=== PATIENT | female | born 1990 | race Caucasian/White ===

== ENCOUNTER → 2017-01-03 | Outpatient (CLI) | payer BC ==
[~2017-01-03] MED LIST: NAPR1TAB9 PO; ONDA4TAB7 SL
--- NOTE | 2017-01-03 09:47 | DIAGNOSTIC IMAGING REPORT ---
ULTRASOUND RIGHT UPPER QUADRANT ABDOMEN CLINICAL HISTORY: Right upper quadrant abdominal pain. COMPARISON STUDY: Abdominal CT dated 01/04/2014. TECHNIQUE: Real-time, grayscale, and color flow sonography of the right upper quadrant of the abdomen was performed. Images are reviewed in the transverse and longitudinal planes. FINDINGS: Liver: The liver is normal in size and echotexture. There is no intrahepatic biliary ductal dilatation. The main portal vein is patent. Gallbladder: The gallbladder is normal in appearance. No gallstones are identified. There is no gallbladder wall thickening or pericholecystic fluid. A sonographic Denise's sign is reportedly absent. The common bile duct measures up to 0.2 cm in diameter. Pancreas: Visualized portions of the pancreatic head and body are normal in appearance. Right kidney: Survey images of the right kidney demonstrate normal size and echotexture. There is no hydronephrosis. Ascites: None. IMPRESSION: Unremarkable sonographic assessment of the right upper quadrant. No gallstones are seen. Electronically signed by: Carlos De La Fuente M.D. 01/03/2017 9:45 AM Dictated Date/Time: 01/03/2017 9:44 AM
== END | disposition home or self-care (01) ==
LOC: C.ULTR 09:09
PROVIDERS: ATTEND Physician Assistant
DX: R10.811 Right upper quadrant abdominal tenderness (principal)

== ENCOUNTER 2022-02-13 07:28 | Inpatient (IN) ==
[2022-02-13] MEDS ORDERED: LACTATED RINGER'S 1,000 ML IV PRN (08:08)
--- NOTE | 2022-02-13 08:17 | History & Physical Report ---
Date of Service February 13, 2022 Assessment & Plan (1) SROM (spontaneous rupture of membranes): Plan: 31 y/o G1 at 39 3/7 wga presents w/ SROM VSS Fetus cat 1 SROM - will see what cervix does over next few hours, never been checked. Will discuss w/ oncoming provider regarding when augmentation would be offered GBS unknown, pt notes she would decline treatment for antibx as well. Discussed importance of treatment if indicated epidural prn History of Present Illness Chief Complaint: LOF Primary Care Provider: Shell Bennett MD 31 y/o G1 at 39 3/7 wga presents w/ LOF since 2AM. Cramping began after, +FM; denies VB. 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: G1 q28-29d denies hx abnl pap, 03/2020 neg cyto declines hx STIs Allergies Allergy/AdvReac Type Severity Reaction Status Date / Time dextromethorphan Allergy Mild HIVES Verified 02/05/22 16:16 doxylamine Allergy Mild HIVES Verified 02/05/22 16:16 pseudoephedrine Allergy Mild HIVES Verified 02/05/22 16:16 acetaminophen [From NyQuil] AdvReac Verified 02/05/22 16:16 Home Medications Medication Instructions Recorded Confirmed Type prenat.vits,yudelka,tjq-tsmo-mmudv PO 07/06/21 02/05/22 History Patient History Medical History (Updated 02/13/22 @ 08:16 by Natalie Lang MD) Acute gastroenteritis Acute pyelonephritis Surgical History History of ankle surgery S/P tonsillectomy Status post adenoidectomy Family History Grandmother (Maternal) Ovarian cancer Mother Ovarian cancer Grandfather (Paternal) Pancreas cancer Denies family history of Prostate cancer Myocardial infarction Breast cancer Colorectal cancer Social History (Updated 07/06/21 @ 11:00 by Maida Sherman, OMARI) Smoking Status: Never smoker Second Hand Exposure: No; Hx Alcohol Use: No Hx Substance Use: No Preferred Language: Arabic Communication Ability: Effective Visual Impairment: No Limitations Hearing Ability: Normal Manager Of Data Required: No Beliefs That Will Affect Care: None marital status: marital status details: Herb Mendez [phone] Current Living Situation: Spouse Current Living Situation Comment: lives with . 2 cats and 1 dog. 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 Feels Safe at Home: Yes Dental Care, Regularly: Yes Physical Activity Frequency: 1-2 Times per Week Seatbelt Use: always Sunscreen Use: Yes Physical Exam Genitourinary: OB Exam Abdomen: + vertex (confirmed by us) and + estimated weight (7) Manual OB Exam: + cervical dilation (3-4), + cervical effacement 70%, + station -2 and + amniotic fluid (+pooling, nitrazine, ferning) OB Exam Monitor Tracing: + external FHT monitor used, + external uterine monitor used (irreg ctx) and + category I (130/mod/+accel/-decel) Results & Data ([facility]) Vital Signs (Past 12 Hours) Vital Signs Pulse BP 02/13/22 07:43 72 136/80 Laboratory Results OB Labs: Blood Type A Positive 07/10/21 Antibody Screen NEGATIVE 07/10/21 Hemoglobin 11.2 g/dL (12.0-16.0) L 11/28/21 Hematocrit 32.8 % (37-47) L 11/28/21 Mean Corpuscular Volume 83.7 fL (80-100) 07/10/21 Platelet Count 283 K/uL (130-400) 07/10/21 Rubella IgG Antibody Immune (Immune) 07/10/21 Rapid Plasma Reagin Nonreactive (Nonreactive) 07/10/21 Hepatitis B Surface Antigen Neg (Neg) 07/10/21 HIV (1&2) Ab and P24 Ag, 4th Gener Neg (Neg) 07/10/21 Glucose 1 Hour 50 gm Load 105 mg/dl (70-130) 11/28/21 OB Optional Labs: Chlamydia trachomatis RNA NOT DETECTED (NOT DETECTED) 07/10/21 Neisseria gonorrhoeae RNA NOT DETECTED (NOT DETECTED) 07/10/21 Thyroid Stimulating Hormone (TSH) 1.180 uIu/ml (0.300-4.500) 11/20/19 Labs Reviewed: declines cf/sma--akh cfDNA low risk--smp declines msafp--smp GBS unk Coding Level of Care Code None Diagnoses SROM (spontaneous rupture of membranes)
[2022-02-13 08:37] LABS: Hemoglobin 11.2 g/dL (12.0-16.0); Mean Corpuscular Hemoglobin 29.6 pg (25-34); Mean Corpuscular Volume 84.4 fL (80-100); Mean Platelet Volume 10.3 fL (7.4-10.4); Platelet Count 245 K/uL (130-400); RDW Coefficient of Variation 14.4 % (11.5-14.5); RDW Standard Deviation 44.2 fL (36.4-46.3); Red Blood Count 3.79 M/uL (4.2-5.4); White Blood Count 9.68 K/uL (4.8-10.8)
--- NOTE | 2022-02-13 12:36 | Labor Progress Brief Note ---
Date of Service February 13, 2022 Subjective Late note due to patient care responsibilities: Patient was checked approx 8am, then rechecked 11am - no cervical change; 3-/-2. Contraction pattern is irregular, not labor pattern. I discussed with patient that since it has been >6h since SROM and since she has not made cervical change, would recommend augmentation with pitocin. She refuses, stating that she'd like to give her body more time. We discussed risks of stalling labor, including risk of infection/chorioamnionitis, , hemorrhage. She has discussed with other physicians her refusal for swab for GBS and refusal for antibiotic treatment for GBS unknown status - I also discussed risks of u nknown GBS status, and therefore non-treatment, including risk of early and late onset GBS sepsis of the . Discussed risk of and risk of severe morbidity to infant. She would like to take these risks and declines GBS prophylaxis treatment. Patient wanted to know if I would be comfortable letting her wait for labor for a bit longer - I told her that, no, my recommendation would be start augmentation now. She declined and stated that she would let us know when her body is ready. Assessment & Plan Admission and Anticipated Discharge Date Admission Date: February 13, 2022 Results & Data ([facility]) Vital Signs (Past 12 Hours) Vital Signs Temp Pulse Resp BP 02/13/22 10:05 36.7 C 18 02/13/22 07:46 36.7 C 72 18 136/80 02/13/22 07:43 36.7 C 72 136/80 Coding Level of Care Code None
[2022-02-13] MEDS ORDERED: OXYTOCIN 30 UNITS/500 ML BAG IV PRN ×2 (14:55→17:06)
--- NOTE | 2022-02-13 14:55 | Labor Progress Brief Note ---
Date of Service February 13, 2022 Subjective Feeling ctx a bit more. Ambulating in room. FHT has been cat 1 with previous strips, just placing pt on monitor now. Cervix 5/100/0 Recommend pit if ctx not Q 2-3 min. Not agreeable to starting pitocin, wants to see how her body does instead. Expresses that since she is trying to labor without epidural, pitocin will make ctx too painful. Assessment & Plan Admission and Anticipated Discharge Date Admission Date: February 13, 2022 Results & Data ([facility]) Vital Signs (Past 12 Hours) Vital Signs Temp Pulse Resp BP 02/13/22 12:56 68 131/77 02/13/22 12:54 37.0 C 20 02/13/22 10:05 36.7 C 18 02/13/22 07:46 36.7 C 72 18 136/80 02/13/22 07:43 36.7 C 72 136/80 Coding Level of Care Code None
[2022-02-13] MEDS: OXYTOCIN 30 UNITS/500 ML BAG IV PRN ×2 (15:49→16:35)
[2022-02-13] MEDS ORDERED: LIDOCAINE 1% LOCAL 20 ML VIAL ONE (15:50)
--- NOTE | 2022-02-13 16:16 | Delivery Summary ---
Vaginal Delivery Summary Date of Service February 13, 2022 Vaginal Delivery Summary and 1st Degree LAC Vaginal Delivery Summary: Pre-delivery diagnoses: 31yo @ 39 2/7, spontaneous labor, unknown GBS status Post-delivery diagnoses: same Procedure: spontaneous vaginal delivery Surgeon: Renée Roque DO Complications: none Findings: Viable male . Apgars: 8/9. Weight pending, please see nursery records. Estimated blood loss: 300ml Description of delivery: The patient progressed to complete without anesthesia. She then began to push. She spontaneously vaginally delivered a viable from the cephalic presentation. The head delivered in GOMEZ position. The anterior shoulder delivered, followed by the posterior shoulder, followed by the body. No nuchal. The baby was placed on mother's abdomen and a spontaneous cry was heard. Delayed cord clamping was employed, and the cord was doubly clamped and cut. Cord blood was obtained. The placenta was delivered spontaneously intact with a 3-vessel cord. The uterus and vagina were swept of clots and debris. IV pitocin was given. The uterus became firm. The cervix, vagina, and perineum were inspected and a deep right vaginal sulcal tear was noted, as well as a 1st degree perineal. The sulcal tear was infiltrated with 1% lidocaine, and repaired with 3-0 vicryl in a running locked stitch. The 1st degree tear was hemostatic, therefore the patient elected against repair. Excellent hem ostasis was observed. The mother and baby are recovering in stable and good condition in the room. Sponge, needle and instrument counts were correct x 2. During the repair of sulcal tear, I accidentally stuck myself with the needle - I promptly cut this off of suture, removed glove and washed with betadine. A new needle was used to continue the repair. At no time did the patient come in contact with my blood or the dirty needle. I debriefed patient, she is agreeable to infectious disease labs by [facility]. Renée Roque DO [facility] Vaginal Delivery Charge Vaginal Delivery Codes: 24671 global code for the antepartum, delivery, and post- Delivery Type Details: and 1st Degree LAC
[2022-02-13] MEDS ORDERED: bisacodyL 10 MG SUPP PR PRN (17:06)
[2022-02-13] MEDS ORDERED: DIPHTHERIA/TETANUS/PERTUSSIS 0.5 ML SYR/VIAL IM ONE (17:06)
[2022-02-13] MEDS ORDERED: BENZOCAINE 20% AER SPR 82.5 GM CAN EXT PRN (17:06)
[2022-02-13] MEDS ORDERED: HYDROCORTISONE ACETATE 25 MG SUPP PR PRN (17:06)
[2022-02-13] MEDS ORDERED: IBUPROFEN 600 MG TAB PO PRN (17:06)
[2022-02-13] MEDS: DOCUSATE SODIUM 100 MG CAP PO SCH (21:07)
--- NOTE | 2022-02-14 05:39 | Obstetrical Progress Note ---
Date of Service <Ashkan Huitron MD - Last Filed: 02/14/22 07:08> February 14, 2022 Assessment & Plan <Ashkan Huitron MD - Last Filed: 02/14/22 07:08> (1) Vaginal delivery: 31 yo now PPD1 from [facility] at 39wk3d, unmedicated , subsequent deep right sulcal tear repaired after delivery. -Continue routine care -Vitals reviewed- HDS, afebrile -GBS unknown- never tested, declined intrapartum antibiotics after lengthy risk/benefit discussion with OB -Pain control with ibuprofen, acetaminophen PRN -Hgb 10.1, asymptomatic <Renée Roque DO - Last Filed: 02/14/22 08:11> (1) Vaginal delivery: Subjective <Ashkan Huitron MD - Last Filed: 02/14/22 07:08> Ambulation: ambulating normally Voiding: no voiding problems Passing Gas:: No Diet Tolerance:: regular diet Lochia:: Small Feeding Type:: breast feeding Current Pain Level(1-10): 0 Pt doing well overall, no acute complaints or distress. Does not feel she needs any pain medication. Review of Systems Denies fever/chills. Denies dyspnea, cough. Denies chest pain. Denies breast pain or discharge. Denies dysuria. Denies headache. Denies back pain. Physical Exam <Ashkan Huitron MD - Last Filed: 02/14/22 07:08> General: Alert, oriented, no acute distress Cardiac: Regular rate and rhythm, normal S1, S2. No murmurs appreciated. Respiratory: Clear to auscultation b/l with good air flow entry, symmetric chest rise and fall. No wheezes or crackles. No increased work of breathing or accessory muscle use Abdomen: Soft, nontender, nondistended. Fundus firm and palpable at 2 cm below umbilicus. No guarding or rebound. Skin: No rashes or lesions Extremities: Warm, dry, well-perfused with capillary refill <2s b/l. No lower extremity edema, erythema, swelling or calf tenderness b/l. Results & Data ([facility]) <Ashkan Huitron MD - Last Filed: 02/14/22 07:08> Vital Signs (Past 12 Hours) Vital Signs Temp Pulse Pulse Resp BP BP Pulse Ox 02/14/22 03:25 36.9 C 70 16 115/74 98 02/13/22 23:39 37.1 C 68 16 111/73 99 02/13/22 19:49 37.2 C 73 16 117/74 99 02/13/22 18:47 37.2 C 107 H 20 148/86 H 02/13/22 18:46 104 H 132/100 02/13/22 18:30 75 125/65 02/13/22 18:15 62 20 114/70 02/13/22 18:00 67 119/75 02/13/22 17:45 66 116/71 02/13/22 17:44 20 <Renée Roque DO - Last Filed: 02/14/22 08:11> Co-Signing Physician Notes Resident Physician Supervision Note: I interviewed and examined the patient. Discussed with Dr. Huitron and agree with findings and plan as documented in the note. Any exceptions or clarifications are listed here: PPD#1 doing well, routine care. Anticipate DC home tomorrow. Documented By: Renée Roque DO Resident Activity Tracking <Ashkan Huitron MD - Last Filed: 02/14/22 07:08> Resident Involvement: Resident Care Provided Care Provided: OB Delivery
[2022-02-14 06:53] LABS: Hematocrit (blood only) 29.4 % (37-47); Hemoglobin 10.1 g/dL (12.0-16.0); Mean Corpuscular Hemoglobin 28.9 pg (25-34); Mean Corpuscular Hgb Conc 34.4 g/dL (32-36); Mean Platelet Volume 10.4 fL (7.4-10.4); Platelet Count 217 K/uL (130-400); RDW Coefficient of Variation 14.5 % (11.5-14.5); RDW Standard Deviation 44.6 fL (36.4-46.3); White Blood Count 15.93 K/uL (4.8-10.8)
[2022-02-14] MEDS: DOCUSATE SODIUM 100 MG CAP PO SCH ×2 (08:45→20:03)
[2022-02-14] MEDS: PRENATAL VITAMIN 1 TAB PO SCH (08:45)
[2022-02-14] MEDS ORDERED: NON-FORMULARY MEDICATION (Prenat.Vits,Cal,Min-Iron-Folic 1 TAB) PO SCH (09:00)
[2022-02-14] MEDS ORDERED: bisacodyL 5 MG TABEC PO SCH (20:00)
--- NOTE | 2022-02-15 05:55 | Obstetrical Progress Note ---
Date of Service <Ashkan Huitron MD - Last Filed: 02/15/22 08:13> February 15, 2022 Assessment & Plan <Ashkan Huitron MD - Last Filed: 02/15/22 08:13> (1) Vaginal delivery: 31 yo now PPD2 from at 39wk3d, unmedicated with deep right sulcal tear repaired after delivery. -Discharge to home today, instructions reviewed with patient -Vitals reviewed- HDS, afebrile -GBS unknown- never tested, declined intrapartum antibiotics after lengthy risk/benefit discussion with OB -Hgb 10.5, stable -F/u in 6 weeks with OB <Neil Elliott MD - Last Filed: 02/15/22 08:18> (1) Vaginal delivery: Subjective <Ashkan Huitron MD - Last Filed: 02/15/22 08:13> Ambulation: ambulating normally Voiding: no voiding problems Passing Gas:: No Diet Tolerance:: regular diet Lochia:: Small Feeding Type:: breast feeding Current Pain Level(1-10): 0 Pt doing well overall, no acute complaints or distress. Does not feel she needs any pain medication. Review of Systems Denies fever/chills. Denies dyspnea, cough. Denies chest pain. Denies breast pain or discharge. Denies dysuria. Denies headache. Denies back pain. Physical Exam <Ashkan Huitron MD - Last Filed: 02/15/22 08:13> General: Alert, oriented, no acute distress Cardiac: Regular rate and rhythm, normal S1, S2. No murmurs appreciated. Respiratory: Clear to auscultation b/l with good air flow entry, symmetric chest rise and fall. No wheezes or crackles. No increased work of breathing or accessory muscle use Abdomen: Soft, nontender, nondistended. Fundus firm and palpable at 2 cm below umbilicus. No guarding or rebound. Skin: No rashes or lesions Extremities: Warm, dry, well-perfused with capillary refill <2s b/l. No lower extremity edema, erythema, swelling or calf tenderness b/l. Results & Data ([facility]) <Ashkan Huitron MD - Last Filed: 02/15/22 08:13> Vital Signs (Past 12 Hours) Vital Signs Temp Pulse Resp BP Pulse Ox 02/14/22 23:30 36.5 C 76 18 119/79 98 02/14/22 20:00 37 C 77 16 112/70 96 <Neil Elliott MD - Last Filed: 02/15/22 08:18> Co-Signing Physician Notes Patient seen and evaluated with resident and agree with the above findings and plan. Doing well. Stable for discharge. Resident Activity Tracking <Ashkan Huitron MD - Last Filed: 02/15/22 08:13> Resident Involvement: Resident Care Provided Care Provided: OB Delivery
[2022-02-15 06:46] LABS: Hematocrit (blood only) 31.3 % (37-47); Hemoglobin 10.5 g/dL (12.0-16.0)
[2022-02-15] MEDS: PRENATAL VITAMIN 1 TAB PO SCH (08:49)
[2022-02-15] MEDS: DOCUSATE SODIUM 100 MG CAP PO SCH (08:49)
== END 2022-02-15 12:17 | disposition home or self-care (01) | DRG 807 ==
LOC: OPB 07:28 → 4S1 07:33 → 4E2 21:40

== ENCOUNTER 2023-08-27 09:26 | Inpatient (IN) ==
[2023-08-27] MEDS ORDERED: LIDOCAINE 1% LOCAL 20 ML VIAL INFIL PRN (10:11)
[2023-08-27] MEDS ORDERED: LACTATED RINGER'S 1,000 ML IV PRN (10:11)
[2023-08-27] MEDS ORDERED: OXYTOCIN 30 UNITS/NSS 30 UNITS/500 ML BAG IV PRN ×2 (10:11→12:23)
--- NOTE | 2023-08-27 10:13 | History & Physical Report ---
Date of Service August 27, 2023 Assessment & Plan (1) Normal labor: Plan Patient will be admitted for labor. Desires an unmedicated minimally interventional . She is ok with a saline lock when explained about need for access should there be bleeding. She is ok with dilute iv pp pitocin, but declines any pitocin in labor, will unlikely need. Offered arom now and declines. She has declined GBS screening, so status is unknown. Explained to the patient that if she is GBS positive and does not receive antibiotics and baby picks up this bacteria during the delivery , that the outcomes can be quite devestating including sepsis, pneumonia, meningitis and even . Patient expresses understanding of these potential outcomes, that they can be devestating to the baby and can cause and that there is a very easy, minimal risk prophylaxis that can prevent these outcomes. She declines antibiotics. Fetus is category one and anticipate . History of Present Illness Chief Complaint: contractions. Primary Care Provider: Shell Bennett MD Patient is a 33yowf with iup at 39 1/7 weeks who presents to labor and delivery with contractions since 6am. no lof/vb. +fm. and Delivery Plans Declines GBS OB Labs: Blood Type A Positive 02/27/23 Antibody Screen NEGATIVE 02/27/23 Hemoglobin 11.0 g/dl (12.0-16.0) L 07/25/23 Hematocrit 32.6 % (37.0-47.0) L 07/25/23 Mean Corpuscular Volume 79.4 fL (80.0-100.0) L 02/27/23 Platelet Count 295 K/uL (130-400) 02/27/23 Rubella IgG Antibody Immune (Immune) 02/27/23 Rapid Plasma Reagin Nonreactive (Nonreactive) 02/27/23 Hepatitis B Surface Antigen Neg (Neg) 07/10/21 Hepatitis B Surface Antigen. NON-REACTIVE (NON-REACTIVE) 02/27/23 Hepatitis C Antibody (EIA) NON-REACTIVE (NON-REACTIVE) 02/27/23 HIV (1&2) Ab and P24 Ag, 4th Gener Neg (Neg) 07/10/21 HIV (1&2) Ag and Ab Confirmation NON-REACTIVE (NON-REACTIVE) 02/27/23 Glucose 1 Hour 50 gm Load 130 mg/dl (70-130) 07/25/23 OB Optional Labs: Chlamydia trachomatis RNA Not Detected (NotDetected) 02/27/23 Neisseria gonorrhoeae RNA Not Detected (NotDetected) 02/27/23 Thyroid Stimulating Hormone (TSH) 1.180 uIu/ml (0.300-4.500) 11/20/19 Labs Reviewed: declines cf/sma--akh cfDNA low risk--smp declines msafp--smp Allergies Allergy/AdvReac Type Severity Reaction Status Date / Time dextromethorphan Allergy Mild HIVES Verified 08/19/23 16:39 doxylamine Allergy Mild HIVES Verified 08/19/23 16:39 pseudoephedrine Allergy Mild HIVES Verified 08/19/23 16:39 acetaminophen [From NyQuil] AdvReac Hives Verified 08/19/23 16:39 Home Medications Medication Instructions Recorded Confirmed Type prenat.vits,yudelka,zdw-[id number]-ulcni 1 tab PO DAILY 02/18/23 08/27/23 History Patient History Medical History Encounter for supervision of normal intrauterine in primigravida, antepartum Acute pyelonephritis Acute gastroenteritis Surgical History History of ankle surgery Status post adenoidectomy S/P tonsillectomy Family History Grandmother (Maternal) Ovarian cancer Mother H/O: hysterectomy Grandfather (Paternal) Pancreas cancer Denies family history of Prostate cancer Myocardial infarction Breast cancer Colorectal cancer Social History Smoking Status: Never smoker Second Hand Exposure: No; Do You Dip or Chew Tobacco: No; Hx Alcohol Use: No Hx Substance Use: No Preferred Language: [place] Rican Communication Ability: Effective Visual Impairment: No Limitations Hearing Ability: Normal Tax Auditor Required: No Beliefs That Will Affect Care: None marital status: marital status details: Herb Mendez ([phone] Current Living Situation: Spouse Current Living Situation Comment: and son current occupational status: employed 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 Date GA wks Lbr Lgth wt Sex Type del Anes Place Del Prov ? Comment 02/13/22 39 5lb 9oz M Local [facility] Dr. Jude Loza CASE REVIEWER History noncontributory Physical Exam Constitutional: WD/WN, vitals as above Gastrointestinal (Abdomen): soft, gravid, nt Psychiatric: A+Ox3, euthymic affect Genitourinary: cx--7-8, 100/-1, bulging bag toco--q2-4min efm--130s with mod variabiltiy, accels to 150s, no decels, sometimes is picking up maternal hr. Results & Data Vital Signs (Past 12 Hours) Vital Signs Temp Pulse Resp BP 08/27/23 10:10 78 08/27/23 10:10 131/82 08/27/23 09:39 36.6 C 20 08/27/23 09:36 86 135/89 Code Status & VTE Plan VTE Prophylaxis Plan VTE Prophylaxis will be ordered: No Coding Level of Care Code None Diagnoses Normal labor O80; Z37.9
[2023-08-27 10:35] LABS: Hematocrit (blood only) 34.6 % (37.0-47.0); Mean Corpuscular Hemoglobin 27.5 pg (25.0-34.0); Mean Corpuscular Hgb Conc 34.7 g/dL (32.0-36.0); Mean Corpuscular Volume 79.2 fL (80.0-100.0); Mean Platelet Volume 10.8 fL (9.4-12.4); Platelet Count 274 K/uL (130-400); RDW Coefficient of Variation 15.2 % (11.5-14.5); RDW Standard Deviation 42.8 fL (36.4-46.3); Red Blood Count 4.37 M/uL (4.20-5.40); White Blood Count 7.95 K/ul (4.8-10.8)
--- NOTE | 2023-08-27 11:43 | Delivery Summary ---
Vaginal Delivery Summary Date of Service August 27, 2023 Vaginal Delivery Summary and 1st Degree LAC Pre-operative Diagnosis: at 39 weeks labor Post-operative Diagnosis: same Procedure: first degree laceration and repair EBL: 300cc Anesthesia: local lidocaine Procedure: Patient presented to labor and delivery in active labor at 6cm. She desired an unmedicated labor and delivery. She then underwent srom for copious clear fluid and had urge to push. The patient pushed for 2 minutes to deliver a viable male in jannette position. The nose and mouth were bulb suctioned on the perineum and the rest of the infant was then delivered without difficulty. The baby was vigorous. The nose and mouth were again bulb suctioned and the was placed in the maternal abdomen for drying and attention. Cord was clamped and cut at one minute of life. Cord blood obtained. Placenta delivered spontaneous, intact with a three vessel cord. Cervix/sulci/rectum were intact. A small first degree perineal laceration was repaired in the normal standard fashion. Hemostasis obtained with dilute pitocin and fundal massage. Apgars were 8/9. Mother and baby doing well at the end of the delivery[place] [facility] [place] Delivery Charge Delivery Type Details: and 1st Degree LAC
[2023-08-27] MEDS ORDERED: HYDROCORTISONE ACETATE 25 MG SUPP PR PRN (12:23)
[2023-08-27] MEDS ORDERED: bisacodyL 10 MG SUPP PR PRN (12:23)
[2023-08-27] MEDS ORDERED: oxyCODONE/ACETAMINOPHEN 5mg/325mg TAB PO PRN (12:23)
[2023-08-27] MEDS ORDERED: BENZOCAINE 20% SPRY 85 APPLN/85 GM CAN EXT PRN (12:23)
[2023-08-27] MEDS ORDERED: IBUPROFEN 600 MG TAB PO PRN (12:23)
[2023-08-27] MEDS ORDERED: ACETAMINOPHEN 325 MG TAB PO PRN (12:23)
[2023-08-27] MEDS: DOCUSATE SODIUM 100 MG CAP PO SCH (20:11)
--- NOTE | 2023-08-28 05:57 | Obstetrical Progress Note ---
Date of Service August 28, 2023 Assessment & Plan (1) Encounter for care after hospital delivery: Plan -Vital signs reviewed and WNL -HGB 12.0 -Blood type A+ -Rubella immune -Pt doing well clinically -Encourage ambulation -Monitor and control pain with Motrin prn -Monitor lochia -Encourage Admission and Anticipated Discharge Date Admission Date: August 27, 2023 Supervising Physician Co-Signing Physician Notes Resident Physician Supervision Note: I interviewed and examined the patient. Discussed with Dr. Bhatti and agree with findings and plan as documented in the note. Any exceptions or clarifications are listed here: Patient doing well. ff/nt at u. Plan d/c home at 24 hours. Instructions reviewed. Documented By: Aarti Cardona MD, FACOG Subjective 33 yo post- day 1 s/p Ambulation: ambulating normally Voiding: no voiding problems Passing Gas:: Yes Diet Tolerance:: regular diet Lochia:: Small Feeding Type:: breast feeding Current Pain Level: controlled Resting comfortably this AM in NAD. Denies PEDERSEN, CP, SOB, N/V/D, LE pain/swelling. Review of Systems Review of Systems: All systems reviewed & are unremarkable except as noted in HPI & below Physical Exam Physical Exam: General: patient resting comfortably, NAD, non-toxic in appearance, AA&O x 4, answers questions appropriately. Skin: warm, dry, intact HEENT: NC/AT, anicteric sclera, conjunctiva without injection, moist mucus membranes. Heart: +S1/S2, regular, no m/r/g Lungs: equal air entry bilaterally, no rales/rhonchi/wheezes Abd: +BS, soft, NT/ND, uterine fundus firm at umbilicus Ext: warm, no clubbing/cyanosis or edema, Jeffry's neg. Neuro: nonfocal, patient AA&O x 4, speech intact, no facial droop, moving all extremities on command. Results & Data Vital Signs (Past 12 Hours) Vital Signs Temp Pulse Resp BP BP Pulse Ox O2 Del Method 08/27/23 23:30 36.7 C 85 16 107/69 97 Room Air 08/27/23 19:45 37.4 C 90 16 133/83 98 Room Air Resident Activity Tracking Resident Involvement: Resident Care Provided Care Provided: OB Delivery
[2023-08-28 06:19] LABS: Hematocrit (blood only) 33.2 % (37.0-47.0)
[2023-08-28] MEDS ORDERED: PRENATAL VITAMIN 1 TAB PO SCH (08:00)
[2023-08-28] MEDS ORDERED: DIPHTHERIA/TETANUS/PERTUSSIS Vaccine (Tdap, Age 7+yrs) 0.5mL SYR/VL IM ONE (09:00)
[2023-08-28] MEDS: DOCUSATE SODIUM 100 MG CAP PO SCH (09:02)
[2023-08-28] MEDS ORDERED: bisacodyL 5 MG TABEC PO SCH (20:00)
== END 2023-08-28 15:00 | disposition home or self-care (01) | DRG 807 ==
LOC: OPB 09:26 → 4S1 09:27 → 4E2 16:01